=== PATIENT | male | born 1965 | race Caucasian/White ===

== ENCOUNTER 2017-09-12 22:55 | Inpatient (IN) | payer MEDICARE, MEDICAID ==
[~2017-09-12] VITALS: Ht 185.4 cm; Wt 123.1 kg
[2017-09-12] MEDS ORDERED: NOVOLOG (23:11)
[2017-09-12] MEDS ORDERED: LANTUS (23:11)
[2017-09-12] MEDS ORDERED: RIVA20TA PO (23:11)
[2017-09-12] MEDS ORDERED: POTASSIUM PO (23:13)
[2017-09-12] MEDS ORDERED: [UNRECOGNIZED DRUG - OTHER] (23:13)
[2017-09-12] MEDS ORDERED: CARV25TA12 PO (23:15)
[2017-09-12] MEDS ORDERED: SPIR50TA2 PO (23:15)
[2017-09-12] MEDS ORDERED: HYDR12.53 PO (23:15)
[2017-09-12] MEDS ORDERED: SIMV40TA3 PO (23:15)
[2017-09-12] MEDS ORDERED: SODIUM CHLORIDE 0.9% 1,000ML IVBOLUS ONE (23:30)
[2017-09-13] LABS: HEMATOCRIT 37.3 % (39.2-51.8); HEMOGLOBIN 12.1 g/dL (13.7-18.0); WHITE BLOOD COUNT 14.4 x10^3/uL (3.4-10)
[2017-09-13 00:12] LABS: ASPARTATE AMINO TRANSFERASE 336 U/L (15-37); BLOOD UREA NITROGEN 81 mg/dL (7-18)
[2017-09-13 00:16] LABS: IS PT STATUS REG ER OR PRE ER? YES
[2017-09-13 01:19] LABS: DAU SCREEN DISCLAIMER
[2017-09-13] MEDS ORDERED: SODIUM CHLORIDE 0.9% 1,000 ML IV ONE (01:37)
[2017-09-13] MEDS ORDERED: HYDROmorphone 1 MG/ML, 1ML ONE (01:47)
[2017-09-13] MEDS ORDERED: CEFTRIAXONE PMX 1GM/50ML 50 ML ONE (01:47)
[2017-09-13] MEDS ORDERED: ONDANSETRON 2MG/ML, 2ML ONE (01:47)
[2017-09-13] MEDS ORDERED: SODIUM CHLORIDE 0.9% 1,000ML IVBOLUS ONE (02:00)
[2017-09-13] MEDS ORDERED: ONDANSETRON 2MG/ML, 2ML IVPush PRN ×2 (02:00→05:00)
[2017-09-13] MEDS ORDERED: CEFTRIAXONE PMX 1GM/50ML 50 ML IV ONE (02:00)
[2017-09-13] MEDS ORDERED: HYDROmorphone 1 MG/ML, 1ML IVPush PRN (02:00)
[2017-09-13] MEDS ORDERED: ACETAMINOPHEN 325 MG TABLET PO PRN (05:00)
[2017-09-13] MEDS ORDERED: DEXTROSE 50%, 50ML SYRINGE IVPush PRN (05:00)
[2017-09-13] MEDS ORDERED: SODIUM CHLORIDE 0.9% 1,000 ML IV SCH (05:00)
[2017-09-13] MEDS ORDERED: METRONIDAZOLE PMX 500MG/100ML 100 ML IV SCH (05:00)
[2017-09-13] MEDS ORDERED: DEXTROSE 4 GM TAB.CHEW PO PRN (05:00)
[2017-09-13] MEDS ORDERED: CEFTRIAXONE PMX 1GM/50ML 50 ML IV SCH (05:00)
[2017-09-13] MEDS ORDERED: GLUCAGON 1 MG IM PRN (05:00)
[2017-09-13 06:47] VITALS: BP_SYST 130; BP_SYST 98; BP_DIAS 62; BP_DIAS 82
[2017-09-13] MEDS: INSULIN ASPART 100 UNITS/ML, PEN SQ-INSULIN SCH ×2 (07:00→11:20)
[2017-09-13 07:30] VITALS: BP 130/82
[2017-09-13 08:47] VITALS: BP 93/70
[2017-09-13] MEDS ORDERED: MAGNESIUM SULFATE PMX 2GM/50ML 50 ML IV ONE (09:00)
[2017-09-13] MEDS ORDERED: DILTIAZEM 125 MG in SODIUM CHLORIDE 0.9% 100 ML IV PRN (09:00)
[2017-09-13] MEDS ORDERED: SODIUM CHLORIDE FLUSH 10ML SYR IVF SCH ×2 (09:00)
[2017-09-13] MEDS ORDERED: SODIUM CHLORIDE 0.9%, 250ML IVBOLUS ONE (09:30)
[2017-09-13 10:39] VITALS: BP 98/60
[2017-09-13] MEDS ORDERED: SIMVASTATIN 40 MG TABLET PO SCH (21:00)
[2017-09-14] MEDS ORDERED: DILTIAZEM 125 MG in SODIUM CHLORIDE 0.9% 100 ML IV PRN (09:00)
== END 2017-09-13 12:20 | disposition left against medical advice (07) | DRG 871 ==
LOC: ED 23:59 → EDIP 09-13 02:14 → 5SO 09-13 02:30 → CCU 09-13 11:28
PROVIDERS: ADMIT Hospitalist; ATTEND Hospitalist
DX: A41.9 Sepsis, unspecified organism (principal); I50.31 Acute diastolic (congestive) heart failure; N17.9 Acute kidney failure, unspecified; I42.9 Cardiomyopathy, unspecified; I95.9 Hypotension, unspecified; E11.65 Type 2 diabetes mellitus with hyperglycemia; E87.1 Hypo-osmolality and hyponatremia; N30.90 Cystitis, unspecified without hematuria; E86.9 Volume depletion, unspecified; R55 Syncope and collapse; Z53.21 Procedure and treatment not carried out due to patient leaving prior to being seen by health care provider; K81.9 Cholecystitis, unspecified; I48.0 Paroxysmal atrial fibrillation; E66.9 Obesity, unspecified; F17.200 Nicotine dependence, unspecified, uncomplicated; Z79.4 Long term (current) use of insulin; Z68.35 Body mass index [BMI] 35.0-35.9, adult; R65.20 Severe sepsis without septic shock
CPT/HCPCS: 36415; 70450; 71010; 76700; 80053; 80307; 81001; 82962; 83605; 83880; 84145; 84484; 85025; 87040; 87077; 87081; 87086; 87186; 93005; 93306; 96365; 96375; J0696; J1170; J2405; G0479; J3475; J7030; J7050